=== PATIENT | male | born 1955 | race Caucasian/White ===

== ENCOUNTER 2021-04-25 18:00 | Outpatient (REF) | payer SELFPAY ==
[2021-04-27 13:27] LABS: COVID-19 RT-PCR UVMMC Result Negative (Negative)
== END 2021-04-25 18:01 | disposition home or self-care (01) ==
LOC: LBN 18:00
PROVIDERS: Visit Provider Physician Assistant Medical
DX: Z20.822 Contact with and (suspected) exposure to COVID-19 (principal); J06.9 Acute upper respiratory infection, unspecified
CPT/HCPCS: U0003

== ENCOUNTER 2021-09-04 18:36 | Emergency (ER) | payer MEDICARE, SELFPAY ==
[2021-09-04 18:42] VITALS: BP 158/73; PULSE 67; RESP 16; TEMP 36.6; O2SAT 98
--- NOTE | 2021-09-04 19:00 | DI.CT_ITS ---
Exam(s) CT HEAD FACIAL WO EXAM: CT HEAD FACIAL WO CLINICAL HISTORY: Fall, Head Injury, R/O nasal fracture. TECHNIQUE: Imaging Protocol: Axial computed tomography images with coronal and sagittal reformatted images were created and reviewed COMPARISON: No exams were available for comparison FINDINGS: The ventricular system is normal in appearance with changes of mild cerebral atrophy.. No evidence of acute intracranial hemorrhage, mass effect, or midline shift. The orbital structures are unremarkable. The temporal bone structures appear intact. Calvarium: Normal. Visualized Paranasal sinuses/Mastoids: Clear. Scanning of the facial region shows a minimally displaced fracture of the tip of nasal bone on the le ft. This is of uncertain age. No additional maxillofacial fracture seen. Orbital contents are norm al with no evidence of hematoma or other evidence of trauma. IMPRESSION: Normal cranial CT. Minimally displaced nasal fracture of uncertain age. RADIATION DOSE DELIVERED: 1,656.58mGy.cm Total DLP 1,656.58mGy.cm Total DLP 35.52mGy CTDIvol DATA REPOSITORY: All CT scans at this facility are submitted to the National Radiology Data Registry (NRDR) Dose Index Registry (DIR) with the [employer] ([employer]). RADIATION OPTIMIZATION: All CT scans at this facility use at least one of these dose optimization te chniques: automated exposure control; mA and/or kV adjustment per patient size (includes targeted exa ms where dose is matched to clinical indication); or iterative reconstruction.
--- NOTE | 2021-09-04 19:00 | DI.RAD_ITS ---
Exam(s) XR RIBS LT W PA LAT CHEST EXAM: XR RIBS LT W PA LAT CHEST CLINICAL HISTORY: Fall, left anterior rib pain TECHNIQUE: COMPARISON: No exams were available for comparison FINDINGS: Heart is not enlarged. Lungs are predominantly clear. There is a 1 cm in diameter focal opacity pro jected over the right upper lobe, I am uncertain whether this is within the lung or in the chest wall . Additional evaluation with chest CT recommended. No other evident consolidation. No pleural effu mariposa. No pneumothorax. No rib fracture identified. IMPRESSION: No evidence of acute injury. Nodular opacity projected over right upper lobe, chest CT requested to evaluate the possibility of intrapulmonary nodule. RADIATION DOSE DELIVERED: Total DLP
--- NOTE | 2021-09-04 19:00 | DI.RAD_ITS ---
Exam(s) XR HAND LT COMPLETE EXAM: XR HAND LT COMPLETE CLINICAL HISTORY: Fall, finger pain TECHNIQUE: COMPARISON: No exams were available for comparison FINDINGS: Three views were obtained. There is no evidence of acute fracture or dislocation. 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 IMPRESSION: RADIATION DOSE DELIVERED: Total DLP
--- NOTE | 2021-09-04 19:15 | ED.GENADUL_ITS ---
Discharge Plan Disposition Patient Disposition: HOME Condition: Stable Discharge Details Clinical Impression: Fracture of nasal bones, Fracture of right wrist, Fall Primary Care Provider: Unknown,Unknown ED Provider: Vanessa Seaman Home Meds and New Rx's Prescriptions: New amoxicillin-pot clavulanate [Augmentin] 875-125 mg tablet 1 tab PO BID 5 Days Qty: 10 RF: 0 Discharge Instructions Instructions: Nasal Fracture (ED), Wrist Fracture in Adults (ED), Head Injury (ED) Additional Instructions: Imaging tonight shows a slightly depressed nasal fracture, right wrist fracture. Please wear splint as needed for comfort. Rest ice compression elevation. Please return to the ER for any confusion, vomiting, worsening chest pain, shortness of breath or any concerns. Please follow-up with orthopedics within the next 1 to 2 weeks. Please also follow-up with ear nose and throat as needed for the nose fracture. Please take the antibiotics as directed. Please take Tylenol or Ibuprofen with food every 4-6 hours as needed for pain and swelling. Referrals: Roebrt Yang MD [ [facility] STAFF PHYSICIAN] - 5 days Robb Lucero MD [ [facility] STAFF PHYSICIAN] - 2 weeks Discharge Data Discharge Date/Time-TO BE ENTERED AT DEPARTURE: 09/04/21 23:06 Medical Decision Making 66-year-old male presents to the ER with chief complaint of mechanical fall which occurred approximately 1 and half hours prior to arrival. Patient states that he tripped over a rock and fell into body water while fishing. He denies any loss of consciousness. He does have a laceration noted to the bridge of his nose abrasions to his right anterior forehead, is complaining of left anterior rib pain, left hand pain and has a abrasion noted to his left anterior lassiter. He has full range of motion of all 4 extremities. Does have swelling noted to his left middle finger. Denies any neck PE or L-spine midline tenderness. No shortness of breath no abdominal pain. He is on any blood thinners denies taking any aspirin. CT head and facial's without ordered, x-rays left hand rib series. Tdap ordered patient unsure of last tetanus vaccination. TECHNIQUE: Imaging protocol: Computed tomography of the head without contrast. COMPARISON: No relevant prior studies available. FINDINGS: Brain: There is no evidence of intracranial hemorrhage. Unremarkable white matter. No mass effect or midline shift. There is a 5 mm lipoma to the right of the midline at the confluence of the venous sinuses (torcular herophili) . This is best seen on series 3, image 21. Cerebral ventricles: The ventricles and sulci are appropriate for the patient's age. Paranasal sinuses: There are no air-fluid levels. Mastoid air cells: The visualized mastoid air cells are well aerated. Bones/joints: No acute fracture. Soft tissues: Unremarkable. IMPRESSION: No acute intracranial findings. Imaging protocol: Computed tomography images of the face without contrast. COMPARISON: No relevant prior studies available. FINDINGS: Orbital cavity: Orbits are normal. Globes are unremarkable. Bones/joints: There is nasal septal deviation to the left of 6 mm with a bony spur. There is a minimally displaced fracture of the left nasal bone of unknown acuity, likely chronic as there is no associated soft tissue swelling. Paranasal sinuses: Normal. No air-fluid levels. Soft tissues: Unremarkable. Dental: The most posterior right maxillary molar is missing its crown and shows periapical lucencies suggestive of tooth abscesses. Orthodontic material on the patient's teeth creates streak artifact that degrades the images of the mouth. IMPRESSION: 1. A minimally displaced fracture of the left nasal bone near the bridge, likely a chronic fracture as the is no associated soft tissue swelling, but correlate clinically as to pain and tenderness over this area (series 10, images [id number]). 2. Periapical lucencies of the most posterior right maxillary molar suggestive of tooth abscesses. This molar is missing its crown. Thank you for allowing us to participate in the care of your patient. Dictated and Authenticated by: Archie Mariano MD Wound care performed at bedside by myself. Normal saline and chlorhexidine scrub performed to bridge of nose. Discussed CT results with patient and family verbalized understanding. Will place patient on Augmentin twice daily x5 days to treat empirically for nasal fracture and freshwater exposure. Awaiting remainder of x-ray results at this time. X-ray right rib shows a possible fracture. Ortho contacted Dr. Yang who recommends splint and follow-up in the office. Patient given out thumb spica wrist splint, wound care performed on the nose with a flap trimmed. As noted in above note. Discussed strict return instructions to follow-up with ENT and/or Ortho. Patient to be going back home to [place] on Wednesday. Been made given. Patient and family verbalized understanding. This text was generated using [employer] dictation system, please disregard any oddities of phrase or misspellings. HPI General Mode of arrival: ambulatory . Date/Time Provider Initiated Documentation: 09/04/21 18:47 . Limitations to Documentation: no limitations . Information obtained by: patient, family and RN notes reviewed . HPI Narrative: 66-year-old male presents to the ER with chief complaint of mechanical fall which occurred approximately 1 and half hours prior to arrival. Patient states that he tripped over a rock and fell into body water while fishing. He denies any loss of consciousness. He does have a laceration noted to the bridge of his nose abrasions to his right anterior forehead, is complaining of left anterior rib pain, left hand pain and has a abrasion noted to his left anterior lassiter. He has full range of motion of all 4 extremities. Does have swelling noted to his left middle finger. Denies any neck PE or L-spine midline tenderness. No shortness of breath no abdominal pain. He is on any blood thinners denies taking any aspirin. Related Data Home Medications Medication Instructions Recorded Confirmed amoxicillin-pot clavulanate 1 tab PO BID 5 Days #10 tab 09/04/21 [Augmentin] Previous Rx's Medication Instructions Recorded amoxicillin-pot clavulanate 1 tab PO BID 5 Days #10 tab 09/04/21 [Augmentin] General Stated Complaint: Laceration RAJNI: 3 Review of Systems All systems reviewed & are unremarkable except as noted in HPI and below Constitutional Constitutional: Reports headache(s) Eyes Eyes: Denies loss of vision ENT Ears, Nose, Mouth, and Throat: Reports as per HPI, Denies dizziness, Reports facial pain, Reports headache(s), Reports nasal trauma, Denies neck pain and Reports nose pain Comments: Complaining of right headache, nose pain no loss of consciousness Cardiovascular Cardiovascular: Denies syncope and Denies dyspnea Comments: And his lower left rib tenderness with palpation, no crepitus no step- off Respiratory Respiratory: Denies pain on inspiration, Denies pain with cough and Denies dyspnea Gastrointestinal Gastrointestinal: Denies abdominal pain and Denies melena Genitourinary Genitourinary: Reports system reviewed and no additional complaints, except as documented Musculoskeletal Musculoskeletal: Reports as per HPI, Denies abnormal gait, Denies back pain, Reports arthralgias, Reports joint swelling, Reports limited range of motion, Denies neck pain and Denies numbness Comments: Present. Walking, no pain, headache, left hand right wrist pain. Integumentary/Breasts Skin/Breast: Reports wounds Neurologic Neurologic: Denies abnormal speech, Denies abnormal gait, Denies confusion, Denies dizziness, Denies syncope, Reports headache(s), Denies loss of vision, Denies memory loss, Denies numbness and Denies convulsions Psychiatric Psychiatric: Denies confusion and Denies memory loss [facility] Social History Smoking/Tobacco Use Status: Never Smoking risk assessment performed?: Yes Alcohol Intake: never Drug use: Never Substance use type: does not use Do you feel safe at home: Yes Do you feel safe in your relationship?: Yes Exam Narrative Exam Narrative: General: Well Developed, Awake and Alert, conversant. Skin: Warm and Dry HEENT: Head: No palpable deformities, Normocephalic Eyes: Pupils PERRLA, EOM's intact. No periorbital eccymosis or step off Ears: Canal patent. Tympanic membranes are clear . No solomon's sign, no hemptympanum. Nose/Face: Laceration of the bridge of nose, superficial abrasion noted to right anterior scalp, no nasal septal hematoma facial bones nontender to palpation and stable with manipulation. Mouth/Throat: No intraoral trauma. Teeth and mandible are intact. Neck: No midline tenderness, no step off, no deformity to palpation of C-spine. Trachea midline. Chest: No surface trauma. Tenderness to left anterior chest wall without crepitus or deformity. Lungs clear to ausculatation bilaterally. Heart: RRR, no rubs, murmurs or gallop. Abdomen: No abrasions, ecchymosis, or surface trauma. Nondistended. Nontender to palpation no guarding, rebound, or rigidity. Pelvis: Nontender to palpation and stable to compression. Femoral pulses strong and equal Extremities: Superficial abrasion noted to left anterior lassiter sensation intact. Peripheral pulses intact and equal. Neuro: ANO x4, GCS 15, cranial nerves II through XII intact. Motor and sensory exam nonfocal. Reflexes are symmetric. Course Vital Signs Vital signs: Vital Signs Temperature 36.6 C 09/04/21 18:42 Pulse 67 09/04/21 18:42 Respiratory Rate 16 09/04/21 18:42 Blood Pressure 158/73 H 09/04/21 18:42 Pulse Oximetry 98 09/04/21 18:42 Temperature 36.6 C 09/04/21 18:42 Temperature Source Tympanic 09/04/21 18:42 Pulse 67 09/04/21 18:42 Respiratory Rate 16 09/04/21 18:42 Respiratory Effort Non-Labored 09/04/21 18:47 Blood Pressure 158/73 H 09/04/21 18:42 Blood Pressure Position Sitting 09/04/21 18:42 Pulse Oximetry 98 09/04/21 18:42 Oxygen Delivery Method Room Air 09/04/21 18:42 Oxygen Flow Rate 0 09/04/21 18:42 Pain Level 6 09/04/21 18:42
--- NOTE | 2021-09-04 20:30 | DI.RAD_ITS ---
Exam(s) XR WRIST RT COMPLETE EXAM: XR WRIST RT COMPLETE CLINICAL HISTORY: Fall, R/O Fracture TECHNIQUE: COMPARISON: No exams were available for comparison FINDINGS: Three views were obtained. Note is made of chondrocalcinosis and there are chronic ossific radiodens ities adjacent to the ulnar styloid. Note is also made of an ossific density projected on the dorsal aspect of the wrist on the lateral view, triquetrum fracture not excluded. Correlation with CT sugg ested if there is a clinical suspicion of acute injury. No other suspicious findings on these radiographs. IMPRESSION: RADIATION DOSE DELIVERED: Total DLP
[2021-09-04] MEDS: Tetanus & Diphtheria Tox,ADULT 0.5 ML VIAL IM (20:36)
[2021-09-04] MEDS: Lidocaine/Epinephri/Tetracaine Topical Gel 3 ML TP (20:36)
--- NOTE | 2021-09-04 21:07 | DI.VRAD_ITS ---
PROCEDURE INFORMATION: Exam: CT Head Without Contrast Exam date and time: 09/04/2021 7:15 PM Age: 66 years old Clinical indication: Injury or trauma; Fall; Blunt trauma (contusions or hematomas); Nose TECHNIQUE: Imaging protocol: Computed tomography of the head without contrast. COMPARISON: No relevant prior studies available. FINDINGS: Brain: There is no evidence of intracranial hemorrhage. Unremarkable white matter. No mass effect or midline shift. There is a 5 mm lipoma to the right of the midline at the confluence of the venous sinuses (torcular herophili) . This is best seen on series 3, image 21. Cerebral ventricles: The ventricles and sulci are appropriate for the patient's age. Paranasal sinuses: There are no air-fluid levels. Mastoid air cells: The visualized mastoid air cells are well aerated. Bones/joints: No acute fracture. Soft tissues: Unremarkable. IMPRESSION: No acute intracranial findings. PROCEDURE INFORMATION: Exam: CT Maxillofacial Without Contrast Exam date and time: 09/04/2021 7:15 PM Age: 66 years old Clinical indication: Injury or trauma; Fall; Blunt trauma (contusions or hematomas); Nose TECHNIQUE: Imaging protocol: Computed tomography images of the face without contrast. COMPARISON: No relevant prior studies available. FINDINGS: Orbital cavity: Orbits are normal. Globes are unremarkable. Bones/joints: There is nasal septal deviation to the left of 6 mm with a bony spur. There is a minimally displaced fracture of the left nasal bone of unknown acuity, likely chronic as there is no associated soft tissue swelling. Paranasal sinuses: Normal. No air-fluid levels. Soft tissues: Unremarkable. Dental: The most posterior right maxillary molar is missing its crown and shows periapical lucencies suggestive of tooth abscesses. Orthodontic material on the patient's teeth creates streak artifact that degrades the images of the mouth. IMPRESSION: 1. A minimally displaced fracture of the left nasal bone near the bridge, likely a chronic fracture as the is no associated soft tissue swelling, but correlate clinically as to pain and tenderness over this area (series 10, images [id number]). 2. Periapical lucencies of the most posterior right maxillary molar suggestive of tooth abscesses. This molar is missing its crown. Dictated and Authenticated by: Archie Mariano MD. Ordering:TALHA Mendez MD
--- NOTE | 2021-09-04 21:44 | DI.VRAD_ITS ---
PROCEDURE INFORMATION: Exam: XR Left Ribs Exam date and time: 09/04/2021 7:15 PM Age: 66 years old Clinical indication: Other: Fall TECHNIQUE: Imaging protocol: XR Left ribs. Views: 2 views. COMPARISON: No relevant prior studies available. FINDINGS: Bones/joints: No rib fractures are identified. There are no aggressive bone lesions. Soft tissues: Normal. IMPRESSION: No acute findings. PROCEDURE INFORMATION: Exam: XR Chest Exam date and time: 09/04/2021 7:15 PM Age: 66 years old Clinical indication: Other: Fall TECHNIQUE: Imaging protocol: XR of the chest. Views: 2 views. COMPARISON: No relevant prior studies available. FINDINGS: Lungs: There is no evidence of focal pulmonary consolidation. In the right upper lobe, there is a 10 mm indeterminate nodule. Pleural spaces: No pleural effusion or pneumothorax. Heart/Mediastinum: Normal in size. Bones/joints: No acute fracture is identified. IMPRESSION: 1. A right upper lobe nodule of unknown etiology. 2. Consider CT scan of the chest for further characterization. Dictated and Authenticated by: Archie Mariano MD. Ordering:TALHA Mendez MD
[2021-09-04] MEDS: Acetaminophen 500 MG TAB PO (21:47)
[2021-09-04] MEDS: Amoxicillin 875/Clav. 125 TAB PO (21:48)
[2021-09-04 21:54] VITALS: BP 142/92; PULSE 74; TEMP 36.2; O2SAT 98
--- NOTE | 2021-09-04 22:02 | DI.VRAD_ITS ---
PROCEDURE INFORMATION: Exam: XR Left Hand Exam date and time: 09/04/2021 7:15 PM Age: 66 years old Clinical indication: Other: Fall TECHNIQUE: Imaging protocol: XR Left hand. Views: 3 or more views. COMPARISON: No relevant prior studies available. FINDINGS: No acute fractures identified. The joint spaces are well maintained. There is marked deformity involving the ulnar styloid likely due to old fracture. There is calcification involving the triangular fibrocartilage. There is no acute bony destruction. IMPRESSION: 1. No evidence of acute fracture. 2. Deformity involving the ulnar styloid likely due to old fracture with ununited fragments. Dictated and Authenticated by: Brady Toth MD. Ordering:TALHA Mendez MD
--- NOTE | 2021-09-04 22:03 | DI.VRAD_ITS ---
PROCEDURE INFORMATION: Exam: XR Right Wrist Exam date and time: 09/04/2021 8:45 PM Age: 66 years old Clinical indication: Other: Fall TECHNIQUE: Imaging protocol: XR Right wrist. Views: 3 or more views. COMPARISON: No relevant prior studies available. FINDINGS: There is a bony density noted dorsal to the wrist which could represent a triquetrum fracture. There is no dislocation. Bone fragments are seen around the ulnar styloid likely due to old fracture. There is calcification involving the triangular fibrocartilage. There are some small bone fragments along the margin of the scaphoid. IMPRESSION: 1. Bony density dorsal to the wrist which could represent a triquetrum fracture. 2. No additional acute fractures are seen. 3. Multiple bone fragments are seen around the ulnar styloid and along the margin of the scaphoid possibly due to old trauma. Dictated and Authenticated by: Brady Toth MD. Ordering:TALHA Mendez MD
== END 2021-09-04 23:06 | disposition home or self-care (01) ==
PROVIDERS: Emergency Provider Registered Nurse Emergency
DX: S02.2XXB Fracture of nasal bones, initial encounter for open fracture (principal); S62.102A Fracture of unspecified carpal bone, left wrist, initial encounter for closed fracture; S09.8XXA Other specified injuries of head, initial encounter; R07.81 Pleurodynia; M79.645 Pain in left finger(s); W01.198A Fall on same level from slipping, tripping and stumbling with subsequent striking against other object, initial encounter
CPT/HCPCS: 29125; 90471; 99284; 70450; 70486; 71046; 71100; 73110; 73130